=== PATIENT | male | born 1935 | race Asian ===

== ENCOUNTER 2018-06-03 16:11 | Emergency (ER) | payer MEDICARE, OTHER ==
[~2018-06-03] VITALS: Ht 165.1 cm; Wt 56.7 kg
[2018-06-03 16:16] VITALS: BP 105/65
--- NOTE | 2018-06-03 16:18 | NUR ---
PATIENT BIBA TO BED 5 AT THIS TIME.
--- NOTE | 2018-06-03 16:20 | NUR ---
83 YO MALE BIB EMS FROM HOME FOR ABDOMINAL PAIN AWAKE AND ALERT ON ARRIVAL. PT STATES HE HAS NOT GONE TO THE BATHROOM FOR 2 DAYS AND ANURIA FOR 2 DAYS. PT AAOX4, BE DOWN, BEDRAIL UP X 1, ER MD AWARE AND NOTIFIED OF PT STATUS. PMH: HTN, DEMENTIA
[2018-06-03] MEDS ORDERED: cloNIDine 0.1 MG TAB PO ONE (16:50)
--- NOTE | 2018-06-03 16:59 | NUR ---
Patient being evaluated by physician at bedside.
--- NOTE | 2018-06-03 17:20 | NUR ---
# 14 FR Urinary catheter inserted utilizing sterile technique. Immediate return of yellow, hazy uring 200 mls of urine noted. Urine sample collected and sent to lab. Pt tolerated procedure well.
--- NOTE | 2018-06-03 18:03 | NUR ---
son contact information : [email or web address] [phone]
--- NOTE | 2018-06-03 18:20 | NUR ---
DR DAWN INFORMED THAT BP STILL ELEVATED.
[2018-06-03] MEDS ORDERED: SODIUM PHOSPHATE 118 ML ENEM RC ONE (18:25)
[2018-06-03] MEDS ORDERED: hydrALAZINE 20 MG/ML VIAL IM ONE (18:25)
--- NOTE | 2018-06-03 19:10 | NUR ---
REPORT GIVEN TO CARTER FOR CONTINUED CARE.
[2018-06-03 19:50] VITALS: BP 137/47
== END 2018-06-03 19:50 | disposition home or self-care (01) ==
LOC: MED 16:11
DX: K59.00 Constipation, unspecified (principal); I10 Essential (primary) hypertension
CPT/HCPCS: 74022; 96372; 99283; J0360

== ENCOUNTER 2018-07-21 11:31 | Emergency (ER) | payer MEDICARE, OTHER ==
[~2018-07-21] VITALS: Ht 160 cm; Wt 65.8 kg
--- NOTE | 2018-07-21 11:34 | NUR ---
PT BIBA ALS TO BED 7
[2018-07-21 11:41] VITALS: BP 172/78
--- NOTE | 2018-07-21 12:00 | NUR ---
PER RESIDENT PROVIDER. PTS HOUSEHOLD WAS CALLED. PT'S DAUGHTER STATED THAT PT'S SON WHO HAS A "PSYCH PROBLEM" "CALLED 911 BY MISTAKE." "PARAMEDICS BROUGHT DAD IN BY MISTAKE." DUE TO LANGUAGE BARRIER PROBLEM. RESIDENT PROVIDER DR. BENITEZ AT BEDSIDE TO EXAMINE PT.
--- NOTE | 2018-07-21 12:16 | NUR ---
ER MD AT BEDSIDE TO EVALUATE PT
[2018-07-21 13:32] VITALS: BP 172/78
--- NOTE | 2018-07-21 13:33 | NUR ---
Patient discharged with v/s stable. Written and verbal after care instructions given and explained. Patient verbalized understanding. Wheel Chair Assisted with to car. All questions addressed prior to discharge. Advised to follow up with PMD.
== END 2018-07-21 13:33 | disposition home or self-care (01) ==
LOC: MED 11:31
DX: F03.90 Unspecified dementia, unspecified severity, without behavioral disturbance, psychotic disturbance, mood disturbance, and anxiety (principal); I10 Essential (primary) hypertension
CPT/HCPCS: 82948; 93005; 99283